=== PATIENT | female | born 1960 | race African-American/Black ===

== ENCOUNTER 2017-08-27 15:57 | Emergency (ER) | payer OTHER ==
[~2017-08-27] VITALS: Ht 165.1 cm; Wt 128.4 kg
[~2017-08-27 15:57] MED LIST: ARIP30TA PO; HYDR25TA4 PO; LISI-600 PO; PARO25TA8 PO; ZOLP10TA2 PO
[2017-08-27 16:00] VITALS: BP_SYST 160
[2017-08-27] MEDS ORDERED: IPRATROPIUM/ALBUTEROL SULFATE 3 ML AMPUL.NEB INH ONE ×2 (16:15→17:00)
[2017-08-27] MEDS ORDERED: DEXAMETHASONE SOD PHOSPHATE 10 MG/ML VIAL IM ONE (16:15)
[2017-08-27 17:09] VITALS: BP_SYST 148
== END 2017-08-27 17:09 | disposition home or self-care (01) ==
LOC: SED 15:57
DX: J06.9 Acute upper respiratory infection, unspecified (principal); I10 Essential (primary) hypertension; E66.9 Obesity, unspecified; Z90.710 Acquired absence of both cervix and uterus; Z96.653 Presence of artificial knee joint, bilateral; Z88.5 Allergy status to narcotic agent; Z86.59 Personal history of other mental and behavioral disorders; Z68.42 Body mass index [BMI] 45.0-49.9, adult
CPT/HCPCS: 71010; 94640; 96372; 99284; J1100

== ENCOUNTER 2018-05-16 15:49 | Emergency (ER) | payer OTHER ==
[~2018-05-16] VITALS: Ht 165.1 cm; Wt 128.4 kg
[~2018-05-16 15:49] MED LIST changes: +PARO25TA15 PO; -PARO25TA8 PO
[2018-05-16 15:50] VITALS: BP_SYST 154
[2018-05-16 16:46] LABS: BASOPHILS # (AUTO) 0.2 K/uL (0.0-0.2); BASOPHILS % (AUTO) 2.4 % (0.0-2.0); EOSINOPHILS # (AUTO) 0.6 K/uL (0.0-0.4); EOSINOPHILS % (AUTO) 6.3 % (0.0-4.0); HEMATOCRIT 36.1 % (36-48); HEMOGLOBIN 11.6 g/dL (12.0-16.0); LYMPHOCYTES # (AUTO) 2.1 K/uL (1.0-5.5); MEAN CORPUSCULAR HEMOGLOBIN 28 pg (27-31); MEAN CORPUSCULAR HGB CONC 32 % (32-36); MEAN CORPUSCULAR VOLUME 86 fL (79.0-98.0); MONOCYTES # (AUTO) 0.4 K/uL (0.0-1.0); MONOCYTES % (AUTO) 4.1 % (1.7-9.3); NEUTROPHILS # (AUTO) 6.9 K/uL (1.8-7.7); NEUTROPHILS % (AUTO) 66.2 % (40.0-70.0); PLATELET COUNT (AUTO) 336 K/uL (130-430); RED BLOOD CELL COUNT(AUTO) 4.21 MIL/uL (4.2-6.2); RED CELL DISTRIBUTION WIDTH 14.6 % (9.0-15.0); WHITE BLOOD COUNT (AUTO) 10.2 K/uL (4.8-10.8)
[2018-05-16 16:56] LABS: CALCIUM 9.8 mg/dL (8.4-11.0); CREATININE 0.69 mg/dL (0.55-1.30); POTASSIUM 3.8 mmol/L (3.5-5.1)
[2018-05-16 17:01] LABS: ALBUMIN 3.7 g/dL (3.4-4.8); PROTHROMBIN TIME 10.3 SECS (9.5-12.5); TOTAL BILIRUBIN 0.5 mg/dL (0.0-1.0)
[2018-05-16] MEDS ORDERED: PREDNISONE 20 MG TABLET PO ONE (17:30)
[2018-05-16] MEDS ORDERED: ALBUTEROL SULFATE 0.083% 2.5 MG/3 ML VIAL.NEB INH ONE (17:30)
[2018-05-16] MEDS ORDERED: IPRATROPIUM BROM 0.5 MG/2.5 ML VIAL.NEB (ATROVENT) INH ONE (17:30)
[2018-05-16 18:37] VITALS: BP_SYST 136
== END 2018-05-16 18:37 | disposition home or self-care (01) ==
LOC: SED 15:49
DX: J45.909 Unspecified asthma, uncomplicated (principal); I10 Essential (primary) hypertension; Z88.8 Allergy status to other drugs, medicaments and biological substances
CPT/HCPCS: 36415; 71045; 80053; 82550; 83880; 84484; 85025; 85610; 85730; 93005; 94640; 99285; J7512; J7613